=== PATIENT | male | born 1945 | race Caucasian/White ===

== ENCOUNTER → 2019-08-13 15:29 | Outpatient (CLI) | payer MEDICARE, OTHER, SELFPAY ==
--- NOTE | 2019-08-13 | DI.RAD.S_ITS ---
PROCEDURE: XR CHEST 2V INDICATIONS: XR CHEST/ COUGH TECHNIQUE: 2 views of the chest were acquired. COMPARISON: None. FINDINGS: Surgical changes and devices: None. Lungs and pleura: Lungs are clear. No pleural effusions or pneumothorax. Mediastinum: Mediastinal contours are normal. Heart size is normal. Bones and chest wall: No suspicious bony abnormalities. Soft tissues appear unremarkable. IMPRESSION: No acute disease. Dictated by: Enmanuel Sales M.D. on 08/13/2019 at 16:17 Approved by: Enmanuel Sales M.D. on 08/13/2019 at 16:18
== END ==
PROVIDERS: PCP Family Medicine; Visit Provider Family Medicine
DX: R05 Cough (principal)
CPT/HCPCS: 71046

== ENCOUNTER 2019-12-05 07:57 | Emergency (ER) | payer MEDICARE, OTHER, SELFPAY ==
--- NOTE | 2019-12-05 07:58 | ED.GENADULT ---
HPI - General Adult General Chief complaint: Wound/Laceration Stated complaint: tripped over cat lacerated head Time Seen by Provider: 12/05/19 07:57 Source: patient and EMS Mode of arrival: EMS Limitations: no limitations History of Present Illness HPI narrative: 74-year-old male brought in by EMS for a head injury. Patient states that this morning he tripped over his cat falling forward hitting his head on a piece of furniture. There was no loss of consciousness. Was able to ambulate afterwards. Sustained a large cut to his forehead. Call 911. Came in with a bandage over his head. He ambulated into the emergency department. No neck pain. No other injuries reported from the event. Related Data Previous Rx's Medication Instructions Recorded cephalexin [Keflex] 500 mg PO QID 7 Days #28 cap 12/05/19 hydrocodone-acetaminophen [[place]] 1 tab PO Q4-6H PRN #10 tab 12/05/19 Allergies Allergy/AdvReac Type Severity Reaction Status Date / Time No Known Drug Allergies Allergy Verified 12/05/19 08:08 Review of Systems Constitutional Constitutional: Denies fever(s), Denies headache(s) and Denies weakness Eyes Eyes: Denies change in vision ENT Ears, Nose, Mouth, and Throat: Denies vertigo, Denies dizziness, Denies headache(s) and Denies disequilibrium Cardiovascular Cardiovascular: Denies chest pain and Denies dyspnea Respiratory Respiratory: Denies dyspnea Musculoskeletal Musculoskeletal: Denies myalgias and Denies arthralgias Integumentary/Breasts Comments: Laceration to head Neurologic Neurologic: Denies confusion, Denies vertigo, Denies dizziness, Denies headache(s), Denies disequilibrium and Denies weakness Psychiatric Psychiatric: Denies confusion Hematologic/Lymphatic Hematologic/Lymphatic: Denies easy bleeding and Denies easy bruising Comments: not on anticoagulation Patient History Surgical History No pertinent past surgical history (Acute) Social History Smoking Status: Never smoker Exam Initial Vital Signs Initial Vital Signs: Vital Signs Temperature 98.0 F 12/05/19 08:03 Pulse Rate 77 12/05/19 08:03 Respiratory Rate 20 12/05/19 08:03 Blood Pressure 226/109 H 12/05/19 08:03 Pulse Oximetry 99 12/05/19 08:03 Const General: cooperative, comfortable, well developed, well groomed and No acute distress Limitations: mental status not altered HENMT Head: laceration Resp Effort & Inspection: normal respiratory effort Cardio Rate: regular rate Skin Other: large laceration to left side of forehead with bleeding Neuro General: alert, awake and oriented x3 Cognition: normal cognition Speech: speech normal Extrem General: normal to inspection and capillary refill normal Psych Appearance: grossly normal and well kempt Course Orders Ordered: ED Orders 12/05/19 10:45 XR skull <4V Stat Discontinued Medications Hydrocodone Bitart/Acetaminophen ([place] 5/325) 1 tab PO NOW ONE Stop: 12/05/19 11:39 Cefazolin Sodium/Dextrose (Ancef) 2 gm in 100 mls @ 200 mls/hr IV NOW ONE Stop: 12/05/19 10:17 Last Infusion: 12/05/19 11:31 Dose: 0 mls/hr Documented by: Admin: 12/05/19 10:46 Dose: 200 mls/hr Documented by: BOBO Lidocaine/Epinephrine (Xylocaine 1% W/Epi) 1 ml SUBCUT NOW ONE Stop: 12/05/19 07:58 Last Admin: 12/05/19 08:21 Dose: 1 ml Documented by: BOBO Neomycin/Polymyxin/Bacitracin (Neosporin) 1 each TOP NOW ONE Stop: 12/05/19 10:29 Last Admin: 12/05/19 10:31 Dose: 1 each Documented by: BOBO Vital Signs Vital signs: Vital Signs - 8 hr 12/05/19 08:03 12/05/19 08:35 12/05/19 09:22 Temperature 98.0 F Pulse Rate 77 68 68 Respiratory Rate 20 16 18 Blood Pressure 226/109 H Blood Pressure [Left Arm] 184/88 H Pulse Oximetry 99 100 98 12/05/19 11:37 Temperature Pulse Rate 75 Respiratory Rate 16 Blood Pressure Blood Pressure [Left Arm] 178/90 H Pulse Oximetry 97 Medical Decision Making Imaging Data Xray skull: Radiologist's Impression: [address] [address] XRay Report Signed Patient: Rodrigo Eckert WMR#: [id number] : [id number]:[id number] Age/Sex: 74 / MDate of Service: 12/05/19 Loc: ED Accession Number: [id number] Procedure: XR skull <4V Ordering Provider: Ed Vaca D.O. PROCEDURE: XR SKULL<4V INDICATIONS: left temp laceration eval for fracture TECHNIQUE: 4 view(s) of the skull acquired. COMPARISON: None. FINDINGS: Bones: No fractures. No suspicious bony lesions. Visualized sinuses appear clear. Soft tissues: No soft tissue calcifications. No suspicious soft tissue densities. There is a scalp laceration and marked scalp thickening in the left temporoparietal area. IMPRESSION: 1. No displaced skull fracture. 2. There is a scalp laceration and marked scalp thickening in the left temporoparietal area. Dictated by: Nick Carrion M.D. on 12/05/2019 at 11:26 Approved by: Nick Carrion M.D. on 12/05/2019 at 11:29 [facility] Narrative Medical decision making narrative: Patient with a large 20+ cm laceration to his left temporal scalp. It does form a flap. The periosteum underneath appears intact. There is no palpable skull fracture. The flap does extend down to what appears to be just superior to his left ear. There are no vessels that can be identified however it is oozing quite a bit. I did consult Dr. Robledo with General surgery who evaluated the patient in the emergency department. He evaluated the wound. And did all of the repair of the wound in placing of a [place] drain. Patient was given antibiotics here in the ER. He was updated on his tetanus. I do not feel that he needs a CT scan of his head. The x-rays were ordered per recommendation of General surgery to evaluate for fracture. There were no fractures noted on the x-ray. Patient was bandage. He was given care instructions from General surgery. General surgery will follow the patient up on Monday in the clinic. Will send home with antibiotics and pain medication. He was given return precautions and follow-up instructions. He expressed understanding and agreement. Discharge Plan Departure Patient Disposition: Home Clinical Impression: Laceration Instructions: DI for Laceration Repair Activity Restrictions/Additional Instructions: Follow all of the care instructions given to you by General surgery. You were given a prescription for antibiotics. Your 1st dose will be in the middle of this afternoon. Your next dose will be this evening. Use the pain medication as needed. You have a follow-up with Dr. Robledo with General surgery here at [facility] at 0130 on MondayDecember 08. Please check in 15 minutes prior to this. The office phone number for the [place] [facility] is [phone]. Their office is located here in the hospital. Prescriptions: New hydrocodone-acetaminophen [[place]] 5-325 mg tablet 1 tab PO Q4-6H PRN (Reason: pain) Qty: 10 RF: 0 cephalexin [Keflex] 500 mg capsule 500 mg PO QID 7 Days Qty: 28 RF: 0 Referrals: Ed Marcos MD [Primary Care Provider] -
[2019-12-05 08:03] VITALS: BP 226/109; PULSE 77; RESP 20; TEMP 36.7; O2SAT 99; BMI 20.9
[2019-12-05] MEDS: LIDOCAINE 1% W/EPI 1 ML SUBCUT (08:21)
[2019-12-05 08:35] VITALS: BP 184/88; PULSE 68; RESP 16; O2SAT 100
[2019-12-05 09:22] VITALS: PULSE 68; RESP 18; O2SAT 98
[2019-12-05] MEDS: NEOMYCIN/POLYMYXIN/BACITRA UD OINT 1 EACH TOP (10:31)
[2019-12-05] MEDS: LIDOCAINE 2% INJ MDV 20 ML (10:31)
--- NOTE | 2019-12-05 10:32 | PC.NURSE ---
Dr Blunt in ED to suture patient. IV placed and Ancef to be given.
--- NOTE | 2019-12-05 10:45 | DI.RAD.S_ITS ---
PROCEDURE: XR SKULL<4V INDICATIONS: left temp laceration eval for fracture TECHNIQUE: 4 view(s) of the skull acquired. COMPARISON: None. FINDINGS: Bones: No fractures. No suspicious bony lesions. Visualized sinuses appear clear. Soft tissues: No soft tissue calcifications. No suspicious soft tissue densities. There is a scalp laceration and marked scalp thickening in the left temporoparietal area. IMPRESSION: 1. No displaced skull fracture. 2. There is a scalp laceration and marked scalp thickening in the left temporoparietal area. Dictated by: Nick Carrion M.D. on 12/05/2019 at 11:26 Approved by: Nick Carrion M.D. on 12/05/2019 at 11:29
[2019-12-05] MEDS: CEFAZOLIN 2 GM/100 ML FROZ.PIGGY IV (10:46)
--- NOTE | 2019-12-05 11:35 | PC.NURSE ---
pt to and from XR. at side. Dr Vaca advising pt of DC instructions. Advised drain placed in scalp by surgeon and sutured in place. Surgeon advised appt monday at 1300 in his office.
[2019-12-05 11:37] VITALS: BP 178/90; PULSE 75; RESP 16; O2SAT 97
[2019-12-05] MEDS: HYDROCODONE/ACET 5/325 TABLET 1 TAB PO (11:44)
--- NOTE | 2019-12-05 12:06 | CM.DANOTE ---
Discharged patient in stable condition to follow up as directed. RX provided for Keflex and Hydrocodone. Patient with GCS 15 on discharge and no bleeding noted to wound prior to discharge. Home with and daughter. Ambulatory without difficulty.
--- NOTE | 2019-12-06 14:33 | P.CONS_ITS ---
History of Present Illness Consult details Date Patient Seen: 12/05/19 Time Patient Seen: 10:30 Chief complaint: tripped over cat lacerated head Reason for consult: bleeding head laceration Requesting provider: Ed Vaca Narrative: I was asked to come to the emergency room because the patient had fallen and lacerated his scalp but had ongoing bleeding. Patient apparently tripped over a CT and hit a door jam. He did not have loss of consciousness. He said the wound bled profusely at home and in route. He is on no blood thinners Meds Home Medications and Allergies Home Medications Medication Instructions Recorded Confirmed Type cephalexin [Keflex] 500 mg PO QID 7 Days #28 cap 12/05/19 12/06/19 Rx hydrocodone-acetaminophen [[place]] 1 tab PO Q4-6H PRN #10 tab 12/05/19 12/06/19 Rx antiarthritic combination no.2 900 mg PO 12/06/19 12/06/19 History mg tablet cholecalciferol (vitamin D3) 4,000 4,000 unit PO DAILY 12/06/19 12/06/19 History unit capsule dutasteride 0.5 mg capsule 0.5 mg PO DAILY 12/06/19 12/06/19 History magnesium 250 mg tablet 250 mg PO DAILY 12/06/19 12/06/19 History multivitamin,iy-ovyn-mhokmkep 1 tab PO DAILY 12/06/19 12/06/19 History rosuvastatin 10 mg tablet 10 mg PO DAILY 12/06/19 12/06/19 History Allergies Allergy/AdvReac Type Severity Reaction Status Date / Time No Known Drug Allergies Allergy Verified 12/06/19 11:35 Review of Systems Review of Systems Narrative: Denies any chest pain or heart attacks. No breathing issues. No black or bloody bowel movements. No seizures or blackouts. Exam Vital Signs (past 8 hours): Oxygen Delivery Method Room Air Narrative Exam Narrative: Large laceration/near scalping injury to the left of midline. The length of the laceration approximately 12 cm. The portion at the crown of the head is intact but the remainder of the tissue specifically the muscle and skin had been lifted off the underlying galea. The galea peers to be intact. I do not feel any bony defects. There was active oozing coming from the muscle edge. Assessment & Plan Assessment & Plan narrative: Significant head laceration. Will attempt to control the bleeding from the muscle with pressure as there is no distinct bleeding site. Then will close the skin to control any skin edge hemorrhage. Wrap with an Kyree or similar.
--- NOTE | 2019-12-06 14:41 | PM.OP.1 ---
Operative Date/Time/Diagnoses Date of procedure: 12/05/19 Time of procedure: 10:30 Pre-op diagnosis: Head laceration with a partial degloving injury Post-op diagnosis: same Procedure & Clinicians Procedure: Suture repair of a 12 cm long laceration Same procedure as scheduled: Yes Indications: Ongoing hemorrhage from a large scalp laceration Surgeon: Chema Robledo Click Yes if Unassisted: Yes Anesthesia Type: Local (2% lidocaine) Operative Notes Findings: Essentially a degloving injury pulling the skin subcutaneous fat and underlying muscle way from the galea along the left parietal area. No bony defect felt. Closure Type: primary Specimen(s): none sent Prosthetic devices, grafts, tissues, transplants, or devices: None Applied: drain(s) (Monroe drain sutured into place) Blood products transfused: none Procedure in detail: The patient was sitting up in bed. The hair around the laceration was clipped and then prepped with Betadine. Local anesthetic was infiltrated with 2% lidocaine. This was actually done in a field block fashion. I lifted the flap in examined the tissue under it. The muscle was completely torn away from the underlying tissue. The edge was ragged and irregular. There was oozing from its surface but no distinct blood vessel seen. I VAC weighted all the clot from the area. I then applied direct pressure for approximately 15 minutes and the oozing was controlled. I then sutured the skin closed with vertical mattress deep bites of 3 0 nylon. I made this a rather loose closure so any blood under the flap could escape. I placed a Monroe drain posteriorly and sutured it into place to evacuate any blood that might occur once pressure was relieved. Sutures were placed to bring all the bleeding from the skin edge under control. Antibiotic ointment was applied and a dressing was applied. This consisted of dry gauze and a Kerlix covered by Coban. I loosened the area around the neck as it was initially was too tight. Patient was given verbal instructions and these were communicated to the ER doctor so that would they would also be put in writing. He could remove the dressing in 2 days and shower. He should keep antibiotic ointment on it. He should not pull on the drain. Follow-up this Monday. Shanda man says instructed. Pain medication. Complications: none Post-operative Condition: stable Disposition: other (Home if x-ray is of the head show no evidence of fracture)
== END 2019-12-05 12:09 | disposition home or self-care (01) ==
PROVIDERS: Emergency Provider Emergency Medicine; PCP Family Medicine
DX: S01.81XA Laceration without foreign body of other part of head, initial encounter (principal); W01.190A Fall on same level from slipping, tripping and stumbling with subsequent striking against furniture, initial encounter
CPT/HCPCS: 13132; 13133; 70250; 96365; 99284; J0690

== ENCOUNTER → 2020-10-14 08:59 | Outpatient (CLI) | payer MEDICARE, OTHER, SELFPAY ==
[2020-10-14] MEDS: COVID-19 VACC #1, MRNA(MOD) 100 MCG/0.5 ML VIAL IM (09:03)
== END ==
PROVIDERS: Visit Provider Internal Medicine
DX: Z23 Encounter for immunization (principal)
CPT/HCPCS: 0011A; 91301

== ENCOUNTER → 2020-11-11 07:52 | Outpatient (CLI) | payer MEDICARE, OTHER, SELFPAY ==
[2020-11-11] MEDS: COVID-19 VACC #2, MRNA(MOD) 100 MCG/0.5 ML VIAL IM (08:01)
== END ==
PROVIDERS: Visit Provider Internal Medicine
DX: Z23 Encounter for immunization (principal)
CPT/HCPCS: 0012A; 91301

== ENCOUNTER → 2022-01-06 09:35 | Outpatient (CLI) | payer MEDICARE, OTHER, SELFPAY ==
[2022-01-06 11:21] LABS: COVID-19 CEPHEID PCR (VTM/NP) Negative (Negative)
== END ==
PROVIDERS: Visit Provider Family Medicine Sleep Medicine
DX: Z20.822 Contact with and (suspected) exposure to COVID-19 (principal)
CPT/HCPCS: C9803; U0003; U0005

== ENCOUNTER → 2023-05-06 14:10 | Outpatient (CLI) | payer MEDICARE, OTHER, SELFPAY ==
--- NOTE | 2023-05-06 | DI.MRI.S_ITS ---
PROCEDURE: MR HEAD/BRAIN WO/W CON INDICATIONS: 78-year-old male with positional dizziness TECHNIQUE: Noncontrast axial T1 spin echo, axial T2 fast spin echo, sagittal and axial FLAIR, coronal T2 fast spin echo, axial gradient echo, axial diffusion and ADC through the brain. After the administration of contrast, axial and coronal and sagittal 3D VIBE or T1 spin echo with fat saturation through the brain. COMPARISON: None. FINDINGS: Image quality: Excellent. CSF Spaces: Basal cisterns are patent. No extra-axial fluid collections. Ventricles are normal in size and shape. Brain: No intracranial masses or hemorrhage. Dillard/white matter interface is normal. Brainstem appears normal. Diffusion-weighted sequence is unremarkable without evidence of acute infarct. Normal intravascular flow voids are present. Moderate atrophy and chronic ischemic change. No abnormal enhancement Skull and face: Calvarial marrow is normal in signal. Orbits appear normal. Sinuses: Sinuses and mastoids appear clear. IMPRESSION: Moderate atrophy and chronic ischemic change without acute infarct, hemorrhage or mass lesion Approved by: Ezequiel Maya M.D. on 05/07/2023 at 9:22
== END ==
PROVIDERS: Family Provider Family Medicine; PCP Family Medicine; Referring Provider Family Medicine; Visit Provider Family Medicine
DX: G31.9 Degenerative disease of nervous system, unspecified (principal); R42 Dizziness and giddiness
CPT/HCPCS: 70553; A9579

== ENCOUNTER 2023-06-07 14:00 | Outpatient (RCR) | payer MEDICARE, OTHER, SELFPAY ==
--- NOTE | 2023-05-25 16:49 | PT.OIE ---
Current Diagnoses Benign paroxysmal vertigo, left ear (05/25/23) Dizziness and giddiness (05/25/23) Past Medical History (Last Reviewed 12/10/19 @ 12:57 by Chema Robledo MD) Elevated lipids Past Surgical History (Last Reviewed 12/10/19 @ 12:57 by Chema Robledo MD) Hx of hernia repair Hx of repair of rotator cuff No pertinent past surgical history Visit Care Team Role Provider Type Tavo Hayes MD Attending Provider Physician Family Provider Primary Care Provider Referring Provider Specialty: [facility] Address: [address] [place] [address], [facility] Email: [email or web address] Physical Therapy Initial Evaluation PT-OP-A Visit Information Start: 05/25/23 16:39 Freq: Status: Active Protocol: Document 05/25/23 15:45 DCW (Rec: 05/25/23 16:49 DCW [id number]) Out-Patient Physical Therapy Visit Information Visit Information Visit Type Initial Evaluation Visit Start Time 15:45 Visit Stop Time 16:30 Total Visit Minutes 45 Visit Number 1 Number of SUPERVISOR TREATING [employer] PUMPING Visits 0 Evaluation Information Evaluation Date 05/25/23 PT-OP-B Current Condition Start: 05/25/23 16:39 Freq: Status: Active Protocol: Document 05/25/23 15:45 DCW (Rec: 05/25/23 16:49 DCW [id number]) Current Condition History of Current Condition Onset Date 2-3 week history Current Complaints Position-dependent vertigo History of Current Condition Pt is a 78 year old male complaining of a 2-3 week history of motion-induced vertigo. Pt reports episodes last ~1 minute. Symptoms are provoked by lying down or looking up. Pt denies recent hearing changes, tinnitus, diplopia, dysarthria, discoordination, or decreased mentation/consciousness. Pt reports symptoms are not waxing/waning in nature. Pt denies hx of diabetes, arrhythmia, head trauma, seizure, migraines, back/neck problems, CVA, anxiety/panic disorders, depression, or excessive smoking or drinking. Does have a history of both HTN and high cholesterol, both of which are well controlled with medication. Treatment Goals Patient/Caregiver Goals Eliminate vertigo PT-OP-C Subjective Start: 05/25/23 16:39 Freq: Status: Active Protocol: Document 05/25/23 15:45 DCW (Rec: 05/25/23 16:49 DCW [id number]) OP-PT Subjective Patient Comments Patient Comments Pt notes he has read a lot on the internet, believes it is BPPV, and has attempted a self -Melody, but without success. Patient Questionnaires Dizziness Handicap Inventory DHI Score 16% PT-OP-O Vestibular Start: 05/25/23 16:39 Freq: Status: Active Protocol: Document 05/25/23 15:45 DCW (Rec: 05/25/23 16:49 DCW [id number]) Vestibular Assessment Auditory Tests Haynes Test Within normal limits Rinne Test Negative Air Conduction Results Equal Visual Testing Smooth Pursuits Horizontal WNL Smooth Pursuits Vertical WNL Saccades Horizontal WNL Saccades Vertical WNL Heave Test Positive Bilateral Thrust Head Positive Bilateral Spontaneous Nystagmus Negative Positional Testing [place]-Hallpike Positive Left,Negative Right, Upbeating,< 60 Seconds Rolling Test Negative Left,Negative Right PT-OP-Q Treatments Start: 05/25/23 16:39 Freq: Status: Active Protocol: Document 05/25/23 15:45 DCW (Rec: 05/25/23 16:49 DCW [id number]) Canalithic Repositioning BPPV Treatment Melody Affected Canal(s) Left Posterior Reps x2 Comments Modified Melody PT-OP-T Assessment and Plan Start: 05/25/23 16:39 Freq: Status: Active Protocol: Document 05/25/23 15:45 DCW (Rec: 05/25/23 16:49 DC [id number]) Physical Therapy Assessment Rehab Potential Rehabilitation Potential Excellent Evaluation Complexity Number of Personal Factors/Comorbidities 0 Number of Body Systems Impaired 1-2 Clinical Presentation at Evaluation Unstable Impairments Impairments Balance,Functional Activities, Functional Mobility,Transfers, Vestibular Goals Two Impairment Positive Left Kateryna-Hallpike Alf Goal (LTG) Positional testing negative bilaterally LTG Duration 07/06/23 One Impairment Pt reports vertigenous symptoms with migdalia mobility Short Term Goal (STG) Pt to report no vertigo with bed mobility for a full week STG Duration 06/08/23 Assessment Summary Assessment Initial left [place]-Hallpike negative, however pt came laid back very slowly. Right Kateryna- Hallpike also negative. Upon left roll test, pt showed up- beating torsional nystagmus for 15 seconds with complaints of vertigo, and then right roll test was negative. Second left [place]-Hallpike was then performed with increased speed and was mildly positive. 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 Pt was treated with a left-sided modified Melody maneuver. Pt complained of symptoms in the first and third position, which is normally indicative of a successful treatment. Further positional testing was negative. Pt was educated on BPPV, expectations for treatment, possible recurrence (BPPV has a ~50% recurrence rate in the five years following treatment), and post -Melody restrictions. Pt to return in ~1 week for a follow -up appointment, and intermittently afterward as indicated for treatment of BPPV. Physical Therapy Plan Frequency and Duration Frequency of Treatment 1-2x/week Plan of Care Start Date 05/25/23 Plan of Care End Date 07/06/23 Therapeutic Interventions Therapeutic Interventions Balance Training,Canalithic Repositioning,Manual Therapy, Neuromuscular Re-education, Therapeutic Exercises, Vestibular Rehabilitation Next Visit Focus/Plan Next Note Type Treatment Note Next Visit Plan Positional testing, CRM as indicated
--- NOTE | 2023-05-25 16:50 | PT.OPPOC ---
Physical, Occupational & Speech Therapy At [facility] Current Diagnoses Benign paroxysmal vertigo, left ear (05/25/23) Dizziness and giddiness (05/25/23) Visit Care Team Role Provider Type Tavo Hayes MD Attending Provider Physician Family Provider Primary Care Provider Referring Provider Specialty: [facility] Address: [address] [place] [address], [facility] Email: [email or web address] Plan Of Care PT-OP-T Assessment and Plan Start: 05/25/23 16:39 Freq: Status: Active Protocol: Document 05/25/23 15:45 DCW (Rec: 05/25/23 16:49 DCW [id number]) Physical Therapy Assessment Rehab Potential Rehabilitation Potential Excellent Evaluation Complexity Number of Personal Factors/Comorbidities 0 Number of Body Systems Impaired 1-2 Clinical Presentation at Evaluation Unstable Impairments Impairments Balance,Functional Activities, Functional Mobility,Transfers, Vestibular Goals Two Impairment Positive Left [place]-Hallpike Detention Goal (LTG) Positional testing negative bilaterally LTG Duration 07/06/23 One Impairment Pt reports vertigenous symptoms with migdalia mobility Short Term Goal (STG) Pt to report no vertigo with bed mobility for a full week STG Duration 06/08/23 Assessment Summary Assessment Initial left [place]-Hallpike negative, however pt came laid back very slowly. Right Kateryna- Hallpike also negative. Upon left roll test, pt showed up- beating torsional nystagmus for 15 seconds with complaints of vertigo, and then right roll test was negative. Second left Kateryna-Hallpike was then performed with increased speed and was mildly positive. 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 Pt was treated with a left-sided modified Melody maneuver. Pt complained of symptoms in the first and third position, which is normally indicative of a successful treatment. Further positional testing was negative. Pt was educated on BPPV, expectations for treatment, possible recurrence (BPPV has a ~50% recurrence rate in the five years following treatment), and post -Melody restrictions. Pt to return in ~1 week for a follow -up appointment, and intermittently afterward as indicated for treatment of BPPV. Physical Therapy Plan Frequency and Duration Frequency of Treatment 1-2x/week Plan of Care Start Date 05/25/23 Plan of Care End Date 07/06/23 Therapeutic Interventions Therapeutic Interventions Balance Training,Canalithic Repositioning,Manual Therapy, Neuromuscular Re-education, Therapeutic Exercises, Vestibular Rehabilitation Next Visit Focus/Plan Next Note Type Treatment Note Next Visit Plan Positional testing, CRM as indicated Plan of Care Dates Plan of Care Start Date 05/25/23 Plan of Care End Date 07/06/23 Electronically Signed by: Efrain Bhandari, PT 05/25/23 [id number] If you are in agreement with this Plan of Care, please return a signed and dated copy. I have reviewed this Plan of Care and certify that the skilled therapy services above are required to meet the patient?s needs. Physician Signature Date Printed Name and Credentials Clinical Instructor Signature Printed Name and Credentials
--- NOTE | 2023-06-01 11:35 | PT.OTN ---
Current Diagnoses Benign paroxysmal vertigo, left ear (06/01/23) Dizziness and giddiness (06/01/23) Physical Therapy Treatment Note PT-OP-A Visit Information Start: 05/25/23 16:39 Freq: Status: Active Protocol: Document 06/01/23 11:00 DCW (Rec: 06/01/23 11:35 DCW [id number]) Out-Patient Physical Therapy Visit Information Visit Information Visit Type Treatment Note Visit Start Time 11:00 Visit Stop Time 11:30 Total Visit Minutes 30 Visit Number 2 Number of MEDICAL SUPPORT SPECIALIST Visits 0 Evaluation Information Evaluation Date 05/25/23 PT-OP-B Current Condition Start: 05/25/23 16:39 Freq: Status: Active Protocol: Document 05/25/23 15:45 DCW (Rec: 05/25/23 16:49 DCW [id number]) Current Condition History of Current Condition Onset Date 2-3 week history Current Complaints Position-dependent vertigo History of Current Condition Pt is a 78 year old male complaining of a 2-3 week history of motion-induced vertigo. Pt reports episodes last ~1 minute. Symptoms are provoked by lying down or looking up. Pt denies recent hearing changes, tinnitus, diplopia, dysarthria, discoordination, or decreased mentation/consciousness. Pt reports symptoms are not waxing/waning in nature. Pt denies hx of diabetes, arrhythmia, head trauma, seizure, migraines, back/neck problems, CVA, anxiety/panic disorders, depression, or excessive smoking or drinking. Does have a history of both HTN and high cholesterol, both of which are well controlled with medication. Treatment Goals Patient/Caregiver Goals Eliminate vertigo PT-OP-C Subjective Start: 05/25/23 16:39 Freq: Status: Active Protocol: Document 06/01/23 11:00 DCW (Rec: 06/01/23 11:35 DCW [id number]) OP-PT Subjective Patient Comments Patient Comments Pt reports some mild continued symptoms PT-OP-O Vestibular Start: 05/25/23 16:39 Freq: Status: Active Protocol: Document 06/01/23 11:00 DCW (Rec: 06/01/23 11:35 DCW [id number]) Vestibular Assessment Positional Testing Kateryna-Hallpike Negative Left,Negative Right Rolling Test Positive Left,Positive Right, Geotropic PT-OP-Q Treatments Start: 05/25/23 16:39 Freq: Status: Active Protocol: Document 06/01/23 11:00 DCW (Rec: 06/01/23 11:35 DCW [id number]) Canalithic Repositioning BPPV Treatment Gufoni Affected Canal(s) Left Horizontal Reps x1 PT-OP-T Assessment and Plan Start: 05/25/23 16:39 Freq: Status: Active Protocol: Document 06/01/23 11:00 DCW (Rec: 06/01/23 11:35 DCW [id number]) Physical Therapy Assessment Impairments Impairments Balance,Functional Activities, Functional Mobility,Transfers, Vestibular Goals Two Impairment Positive Left [place]-Hallpike Skilled Nursing Goal (LTG) Positional testing negative bilaterally LTG Duration 07/06/23 One Impairment Pt reports vertiginous symptoms with bed mobility Short Term Goal (STG) Pt to report no vertigo with bed mobility for a full week STG Duration 06/08/23 Assessment Summary Assessment During bilateral roll testing, pt complained of mild (L>R) vertigo and demonstrated geotropic nystagmus lasting approximately 5 seconds, consistent with diagnosis of left-sided horizontal canal BPPV, canalithiasis-type. Pt was treated with a left-sided Gufoni Maneuver, noted feeling much better upon sitting. Pt to return in ~1 week for a follow-up appointment, and intermittently afterward as indicated for treatment of BPPV. Physical Therapy Plan Frequency and Duration Frequency of Treatment 1-2x/week Plan of Care Start Date 05/25/23 Plan of Care End Date 07/06/23 Therapeutic Interventions Therapeutic Interventions Balance Training,Canalithic Repositioning,Manual Therapy, Neuromuscular Re-education, Therapeutic Exercises, Vestibular Rehabilitation Next Visit Focus/Plan Next Note Type Treatment Note Next Visit Plan Positional testing, CRM as indicated
--- NOTE | 2023-06-07 14:32 | PT.OTN ---
Current Diagnoses Benign paroxysmal vertigo, left ear (06/07/23) Dizziness and giddiness (06/07/23) Physical Therapy Treatment Note PT-OP-A Visit Information Start: 05/25/23 16:39 Freq: Status: Active Protocol: Document 06/07/23 14:00 DCW (Rec: 06/07/23 14:32 DCW [id number]) Out-Patient Physical Therapy Visit Information Visit Information Visit Type Treatment Note Visit Start Time 14:00 Visit Stop Time 14:25 Total Visit Minutes 25 Visit Number 3 Number of APPOINTMENT SPECIALIST Visits 0 Evaluation Information Evaluation Date 05/25/23 PT-OP-B Current Condition Start: 05/25/23 16:39 Freq: Status: Active Protocol: Document 05/25/23 15:45 DCW (Rec: 05/25/23 16:49 DCW [id number]) Current Condition History of Current Condition Onset Date 2-3 week history Current Complaints Position-dependent vertigo History of Current Condition Pt is a 78 year old male complaining of a 2-3 week history of motion-induced vertigo. Pt reports episodes last ~1 minute. Symptoms are provoked by lying down or looking up. Pt denies recent hearing changes, tinnitus, diplopia, dysarthria, discoordination, or decreased mentation/consciousness. Pt reports symptoms are not waxing/waning in nature. Pt denies hx of diabetes, arrhythmia, head trauma, seizure, migraines, back/neck problems, CVA, anxiety/panic disorders, depression, or excessive smoking or drinking. Does have a history of both HTN and high cholesterol, both of which are well controlled with medication. Treatment Goals Patient/Caregiver Goals Eliminate vertigo PT-OP-C Subjective Start: 05/25/23 16:39 Freq: Status: Active Protocol: Document 06/07/23 14:00 DCW (Rec: 06/07/23 14:32 DCW [id number]) OP-PT Subjective Patient Comments Patient Comments Most of my vertigo and dizziness is laying down. I'm not getting much of anything standing anymore. PT-OP-O Vestibular Start: 05/25/23 16:39 Freq: Status: Active Protocol: Document 06/07/23 14:00 DCW (Rec: 06/07/23 14:32 DCW [id number]) Vestibular Assessment Positional Testing [place]-Hallpike Negative Left,Negative Right Rolling Test Negative Left,Negative Right PT-OP-Q Treatments Start: 05/25/23 16:39 Freq: Status: Active Protocol: Document 06/07/23 14:00 DCW (Rec: 06/07/23 14:32 DCW [id number]) Manual Therapy Treatment Other Other Manual Treatments Positional testing Self-Care/Home Management Treatment Education Other Education BPPV recurrence rate, potential causes PT-OP-T Assessment and Plan Start: 05/25/23 16:39 Freq: Status: Active Protocol: Document 06/07/23 14:00 DCW (Rec: 06/07/23 14:32 DCW [id number]) Physical Therapy Assessment Impairments Impairments Balance,Functional Activities, Functional Mobility,Transfers, Vestibular Goals Two Impairment Positive Left [place]-Hallpike Warehouse Stock Clerk Goal (LTG) Positional testing negative bilaterally LTG Duration 07/06/23 One Impairment Pt reports vertiginous symptoms with bed mobility Short Term Goal (STG) Pt to report no vertigo with bed mobility for a full week STG Duration 06/08/23 Assessment Summary Assessment Positional testing entirely negative today, no objective signs or symptoms of BPPV. Pt subjective reports include continuing symptoms, typically with bed mobility in morning. With negative testing, difficult to determine involved ear or canal. Pt agreeable to return next week if subjective symptoms persist for retesting and potential CRM. Physical Therapy Plan Frequency and Duration Frequency of Treatment 1-2x/week Plan of Care Start Date 05/25/23 Plan of Care End Date 07/06/23 Therapeutic Interventions Therapeutic Interventions Balance Training,Canalithic Repositioning,Manual Therapy, Neuromuscular Re-education, Therapeutic Exercises, Vestibular Rehabilitation Next Visit Focus/Plan Next Note Type Treatment Note Next Visit Plan Positional testing, CRM as indicated
--- NOTE | 2023-06-13 17:51 | PT.OPDS ---
Current Diagnoses Benign paroxysmal vertigo, left ear (06/07/23) Dizziness and giddiness (06/07/23) Visit Care Team Role Provider Type Tavo Hayes MD Attending Provider Physician Family Provider Primary Care Provider Referring Provider Specialty: [facility] Address: [address] [place] [address], [facility] Email: [email or web address] Visit Number Visit Number 3 Discharge Summary PT-OP-B Current Condition Start: 05/25/23 16:39 Freq: Status: Active Protocol: Document 05/25/23 15:45 DCW (Rec: 05/25/23 16:49 DCW [id number]) Current Condition History of Current Condition Onset Date 2-3 week history Current Complaints Position-dependent vertigo History of Current Condition Pt is a 78 year old male complaining of a 2-3 week history of motion-induced vertigo. Pt reports episodes last ~1 minute. Symptoms are provoked by lying down or looking up. Pt denies recent hearing changes, tinnitus, diplopia, dysarthria, discoordination, or decreased mentation/consciousness. Pt reports symptoms are not waxing/waning in nature. Pt denies hx of diabetes, arrhythmia, head trauma, seizure, migraines, back/neck problems, CVA, anxiety/panic disorders, depression, or excessive smoking or drinking. Does have a history of both HTN and high cholesterol, both of which are well controlled with medication. Treatment Goals Patient/Caregiver Goals Eliminate vertigo PT-OP-C Subjective Start: 05/25/23 16:39 Freq: Status: Active Protocol: Document 06/07/23 14:00 DCW (Rec: 06/07/23 14:32 DCW [id number]) OP-PT Subjective Patient Comments Patient Comments Most of my vertigo and dizziness is laying down. I'm not getting much of anything standing anymore. PT-OP-O Vestibular Start: 05/25/23 16:39 Freq: Status: Active Protocol: Document 06/07/23 14:00 DCW (Rec: 06/07/23 14:32 DCW [id number]) Vestibular Assessment Positional Testing Kateryna-Hallpike Negative Left,Negative Right Rolling Test Negative Left,Negative Right PT-OP-T Assessment and Plan Start: 05/25/23 16:39 Freq: Status: Active Protocol: Document 06/13/23 17:50 DCW (Rec: 06/13/23 17:51 DCW [id number]) Physical Therapy Assessment Assessment Summary Assessment As agreed, pt canceled last appointment since symptoms no longer present. Pt currently no longer exhibiting symptoms consistent with BPPV, will be discharged from skilled PT at this time. Physical Therapy Plan Frequency and Duration Frequency of Treatment 1-2x/week Plan of Care Start Date 05/25/23 Plan of Care End Date 07/06/23 Therapeutic Interventions Therapeutic Interventions Balance Training,Canalithic Repositioning,Manual Therapy, Neuromuscular Re-education, Therapeutic Exercises, Vestibular Rehabilitation Discharge Physical Therapy Discharge Reasons Goals Met Next Visit Focus/Plan Next Note Type Discharge Summary
== END 2023-06-16 08:44 | disposition home or self-care (01) ==
LOC: PHYS 14:00
PROVIDERS: Family Provider Family Medicine; PCP Family Medicine; Referring Provider Family Medicine; Visit Provider Family Medicine
DX: H81.12 Benign paroxysmal vertigo, left ear (principal)
CPT/HCPCS: 95992; 97140; 97161; 97535

== ENCOUNTER 2023-12-07 16:00 | Outpatient (RCR) | payer MEDICARE, OTHER, SELFPAY ==
--- NOTE | 2023-11-06 18:14 | PT.OIE ---
Current Diagnoses Other disorders of vestibular function, right ear (11/06/23) Unspecified disorder of vestibular function, unspecified ear (11/06/23) Past Medical History (Last Reviewed 12/10/19 @ 12:57 by Chema Robledo MD) Elevated lipids Past Surgical History (Last Reviewed 12/10/19 @ 12:57 by Chema Robledo MD) Hx of hernia repair Hx of repair of rotator cuff No pertinent past surgical history Visit Care Team Role Provider Type Tavo Hayes MD Family Provider Physician Primary Care Provider Specialty: [facility] Address: [address] [place] [address], [facility] Email: [email or web address] Jalen Lewis MD Attending Provider Physician Referring Provider Specialty: Ear, Nose, Throat Address: [address] [place] [address], [facility] Email: [email or web address] Physical Therapy Initial Evaluation PT-OP-A Visit Information Start: 11/06/23 17:58 Freq: Status: Active Protocol: Document 11/06/23 15:15 DCW (Rec: 11/06/23 18:01 DCW [id number]) Out-Patient Physical Therapy Visit Information Visit Information Visit Type Initial Evaluation Visit Start Time 15:15 Visit Stop Time 16:00 Visit Number 1 Number of CLAIMS ADJUSTER SUPERVISOR Visits 0 Evaluation Information Evaluation Date 11/06/23 PT-OP-B Current Condition Start: 11/06/23 17:58 Freq: Status: Active Protocol: Document 11/06/23 15:15 DCW (Rec: 11/06/23 18:08 DCW [id number]) Current Condition History of Current Condition Onset Date April, Current Complaints Lightheadedness, Motion sensitivity History of Current Condition Pt is an 78 year old male with a six month history of spontaneous onset of constant dizziness, reported as sensitivity to motion and lightheadedness, worsened with quick motions, or when up walking around. Pt was seen in May of last year with vague complaints which sounded much more like BPPV, and was treated at that time with repeated Melody maneuvers, with mild success. After discharge , symptoms were still bothering him enough that he was seen by an ENT. 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 Pt returns to vestibular therapy with hopes that dedicated vestibular rehabilitation will help to decrease severity of symptoms and help adjust to return to normal activity. Additionally, pt recently underwent cataract surgery, now has 20/ 20 vision, uses readers for close up. Prior Treatments and Tests VNG: Cervical VEMP abnormal - 40% right asymmetry. Criteria for asymmetry is greater than 36%. PT-OP-C Subjective Start: 11/06/23 17:58 Freq: Status: Active Protocol: Document 11/06/23 15:15 DCW (Rec: 11/06/23 18:08 DCW [id number]) OP-PT Subjective Patient Comments Patient Comments It's kind of always there. Patient Questionnaires Dizziness Handicap Inventory DHI Score 8% DHI Functional Impairment 1 to 19% Impaired (Score 1-19) PT-OP-O Vestibular Start: 11/06/23 17:58 Freq: Status: Active Protocol: Document 11/06/23 15:15 DCW (Rec: 11/06/23 18:01 DCW [id number]) Vestibular Assessment Visual Testing Convergence Test Impaired DVA (Line Degradation) 6 Vestibular Function Tests CTSIB Position 1 Slight Sway CTSIB Position 2 Mild Sway CTSIB Position 3 Slight Sway CTSIB Position 4 Moderate Sway CTSIB Position 5 Falls Risk CTSIB Position 6 Falls Risk PT-OP-Q Treatments Start: 11/06/23 17:58 Freq: Status: Active Protocol: Document 11/06/23 15:15 DCW (Rec: 11/06/23 18:01 DCW [id number]) Neuro Re-Education Treatment Vestibular Rehabilitation Pencil Push-ups Details Pencil Push-ups Speed as tolerated PT-OP-T Assessment and Plan Start: 11/06/23 17:58 Freq: Status: Active Protocol: Document 11/06/23 15:15 DCW (Rec: 11/06/23 18:13 DCW [id number]) Physical Therapy Assessment Rehab Potential Rehabilitation Potential Good Evaluation Complexity Number of Personal Factors/Comorbidities 3 or More Number of Body Systems Impaired 4 or More Impairments Impairments Activity Tolerance,Balance, Functional Activities, Vestibular,Visual Motor Goals Two Impairment Pt exhibits fall reaction in CTSIB positions V and Shelter Goal (LTG) PT to display moderate sway or better during CTSIB positions V and in order to show improved compensation of vestibular dysfunction LTG Duration 01/05/24 One Impairment Pt does not have an appropriate home exercise program Short Term Goal (STG) Pt to be independent and compliant with an appropriate HEP STG Duration 12/05/23 Assessment Summary Assessment Pt presents with signs and symptoms consistent with results of recent VNG, demonstrating signs of unilateral vestibular hypofunction. Six line degradation during DVA testing highly suggestive of uncompensated loss. Additionally struggles with convergence, noting diplopia that was unable to be corrected at a distance of 28 cm. Fall reaction in positions V and of the CTSIB. Pt should benefit from skilled vestibular therapy focusing on vestibular adaptation/ habituation exercises, X1/X2, VOR retraining, and balance challenges. Physical Therapy Plan Frequency and Duration Frequency of Treatment 2x/Week Plan of Care Start Date 11/06/23 Plan of Care End Date 01/05/24 Therapeutic Interventions Therapeutic Interventions Balance Training,Canalithic Repositioning,Coordination Training,Home Exercise Program ,Manual Therapy,Neuromuscular Re-education,Patient/Caregiver Education,Self-Care/Home Management,Therapeutic Activities,Therapeutic Exercises,Vestibular Rehabilitation Next Visit Focus/Plan Next Note Type Treatment Note Next Visit Plan VOR, X1/X2, Habituation/ adaptation exercises
--- NOTE | 2023-11-06 18:14 | PT.OPPOC ---
Physical, Occupational & Speech Therapy At [facility] Current Diagnoses Other disorders of vestibular function, right ear (11/06/23) Unspecified disorder of vestibular function, unspecified ear (11/06/23) Visit Care Team Role Provider Type Tavo Hayes MD Family Provider Physician Primary Care Provider Specialty: Family Practice Address: [address] [place] [address], [id number] Email: [email or web address] Jalne Lewis MD Attending Provider Physician Referring Provider Specialty: Ear, Nose, Throat Address: [address] [place] [address], [id number] Email: [email or web address] Plan Of Care PT-OP-T Assessment and Plan Start: 11/06/23 17:58 Freq: Status: Active Protocol: Document 11/06/23 15:15 DCW (Rec: 11/06/23 18:13 DCW [id number]) Physical Therapy Assessment Rehab Potential Rehabilitation Potential Good Evaluation Complexity Number of Personal Factors/Comorbidities 3 or More Number of Body Systems Impaired 4 or More Impairments Impairments Activity Tolerance,Balance, Functional Activities, Vestibular,Visual Motor Goals Two Impairment Pt exhibits fall reaction in CTSIB positions V and Steam Box Tender Goal (LTG) PT to display moderate sway or better during CTSIB positions V and in order to show improved compensation of vestibular dysfunction LTG Duration 01/05/24 One Impairment Pt does not have an appropriate home exercise program Short Term Goal (STG) Pt to be independent and compliant with an appropriate HEP STG Duration 12/05/23 Assessment Summary Assessment Pt presents with signs and symptoms consistent with results of recent VNG, demonstrating signs of unilateral vestibular hypofunction. Six line degradation during DVA testing highly suggestive of uncompensated loss. Additionally struggles with convergence, noting diplopia that was unable to be corrected at a distance of 28 cm. Fall reaction in positions V and of the CTSIB. Pt should benefit from skilled vestibular therapy focusing on vestibular adaptation/ habituation exercises, X1/X2, VOR retraining, and balance challenges. Physical Therapy Plan Frequency and Duration Frequency of Treatment 2x/Week Plan of Care Start Date 11/06/23 Plan of Care End Date 01/05/24 Therapeutic Interventions Therapeutic Interventions Balance Training,Canalithic Repositioning,Coordination Training,Home Exercise Program ,Manual Therapy,Neuromuscular Re-education,Patient/Caregiver Education,Self-Care/Home Management,Therapeutic Activities,Therapeutic Exercises,Vestibular Rehabilitation Next Visit Focus/Plan Next Note Type Treatment Note Next Visit Plan VOR, X1/X2, Habituation/ adaptation exercises Plan of Care Dates Plan of Care Start Date 11/06/23 Plan of Care End Date 01/05/24 Electronically Signed by: Efrain Bhandari, PT 11/06/23 2010 If you are in agreement with this Plan of Care, please return a signed and dated copy. I have reviewed this Plan of Care and certify that the skilled therapy services above are required to meet the patient?s needs. Physician Signature Date Printed Name and Credentials Clinical Instructor Signature Printed Name and Credentials
--- NOTE | 2023-11-08 16:45 | PT.OTN ---
Current Diagnoses Other disorders of vestibular function, right ear (11/08/23) Unspecified disorder of vestibular function, unspecified ear (11/08/23) Physical Therapy Treatment Note PT-OP-A Visit Information Start: 11/06/23 17:58 Freq: Status: Active Protocol: Document 11/08/23 16:00 DCW (Rec: 11/08/23 16:44 DCW [id number]) Out-Patient Physical Therapy Visit Information Visit Information Visit Type Treatment Note Visit Start Time 15:15 Visit Stop Time 16:00 Visit Number 2 Number of BYPRODUCTS PUMP OPERATOR Visits 0 Evaluation Information Evaluation Date 11/06/23 PT-OP-B Current Condition Start: 11/06/23 17:58 Freq: Status: Active Protocol: Document 11/06/23 15:15 DCW (Rec: 11/06/23 18:08 DCW [id number]) Current Condition History of Current Condition Onset Date April, Current Complaints Lightheadedness, Motion sensitivity History of Current Condition Pt is an 78 year old male with a six month history of spontaneous onset of constant dizziness, reported as sensitivity to motion and lightheadedness, worsened with quick motions, or when up walking around. Pt was seen in May of last year with vague complaints which sounded much more like BPPV, and was treated at that time with repeated Melody maneuvers, with mild success. After discharge , symptoms were still bothering him enough that he was seen by an ENT. 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 Pt returns to vestibular therapy with hopes that dedicated vestibular rehabilitation will help to decrease severity of symptoms and help adjust to return to normal activity. Additionally, pt recently underwent cataract surgery, now has 20/ 20 vision, uses readers for close up. Prior Treatments and Tests VNG: Cervical VEMP abnormal - 40% right asymmetry. Criteria for asymmetry is greater than 36%. PT-OP-C Subjective Start: 11/06/23 17:58 Freq: Status: Active Protocol: Document 11/08/23 16:00 DCW (Rec: 11/08/23 16:45 DCW [id number]) OP-PT Subjective Patient Comments Patient Comments Pt notes feeling fairly good overall, had easier time with pencil push-ups at home after putting on his reading glasses . PT-OP-O Vestibular Start: 11/06/23 17:58 Freq: Status: Active Protocol: Document 11/06/23 15:15 DCW (Rec: 11/06/23 18:01 DCW [id number]) Vestibular Assessment Visual Testing Convergence Test Impaired DVA (Line Degradation) 6 Vestibular Function Tests CTSIB Position 1 Slight Sway CTSIB Position 2 Mild Sway CTSIB Position 3 Slight Sway CTSIB Position 4 Moderate Sway CTSIB Position 5 Falls Risk CTSIB Position 6 Falls Risk PT-OP-Q Treatments Start: 11/06/23 17:58 Freq: Status: Active Protocol: Document 11/08/23 16:00 DCW (Rec: 11/08/23 16:44 DCW [id number]) Gym Equipment Shuttle Balance Red Details Red Comments WBOS Neuro Re-Education Treatment Balance Activities Foam Details NBOS foam stance Surface Large blue Comments Head turns, eyes closed Dynamic Gait Details Head turns with Metronome Comments 100->120 bpm Vestibular Rehabilitation Corrective Saccades Details Eyes, then head Distance From Target Arm's length Speed As tolerated Position Seated X2 Viewing Details Head and target moving in opposite directions Distance From Target Arm's length Speed As tolerated Position Seated X1 Viewing Details Static target, head movement Distance From Target Arm's length Speed As tolerated Position Seated VOR Retraining Details Head and target moving together Distance From Target Arm's length Speed As tolerated Position Seated PT-OP-T Assessment and Plan Start: 11/06/23 17:58 Freq: Status: Active Protocol: Document 11/08/23 16:00 DCW (Rec: 11/08/23 16:44 DCW [id number]) Physical Therapy Assessment Impairments Impairments Activity Tolerance,Balance, Functional Activities, Vestibular,Visual Motor Goals Two Impairment Pt exhibits fall reaction in CTSIB positions V and Utilization Management Rn Goal (LTG) PT to display moderate sway or better during CTSIB positions V and in order to show improved compensation of vestibular dysfunction LTG Duration 01/05/24 One Impairment Pt does not have an appropriate home exercise program Short Term Goal (STG) Pt to be independent and compliant with an appropriate HEP STG Duration 12/05/23 Assessment Summary Assessment Pt noted relative ease of seated VOR, X1, X2, corrective saccades, trial of performing standing and walking, noticeable increase in difficulty. Instructed to make sure HEP is performed with enough difficulty to make symptoms slightly noticeable, but not overdo it. Physical Therapy Plan Frequency and Duration Frequency of Treatment 2x/Week Plan of Care Start Date 11/06/23 Plan of Care End Date 01/05/24 Therapeutic Interventions Therapeutic Interventions Balance Training,Canalithic Repositioning,Coordination Training,Home Exercise Program ,Manual Therapy,Neuromuscular Re-education,Patient/Caregiver Education,Self-Care/Home Management,Therapeutic Activities,Therapeutic Exercises,Vestibular Rehabilitation Next Visit Focus/Plan Next Note Type Treatment Note Next Visit Plan VOR, X1/X2, Habituation/ adaptation exercises
--- NOTE | 2023-11-15 16:58 | PT.OTN ---
Current Diagnoses Other disorders of vestibular function, right ear (11/15/23) Unspecified disorder of vestibular function, unspecified ear (11/15/23) Physical Therapy Treatment Note PT-OP-A Visit Information Start: 11/06/23 17:58 Freq: Status: Active Protocol: Document 11/15/23 16:00 DCW (Rec: 11/15/23 16:55 DCW [id number]) Out-Patient Physical Therapy Visit Information Visit Information Visit Type Treatment Note Visit Start Time 16:00 Visit Stop Time 16:45 Visit Number 3 Number of HEAD PORTER Visits 0 Evaluation Information Evaluation Date 11/06/23 PT-OP-B Current Condition Start: 11/06/23 17:58 Freq: Status: Active Protocol: Document 11/06/23 15:15 DCW (Rec: 11/06/23 18:08 DCW [id number]) Current Condition History of Current Condition Onset Date April, Current Complaints Lightheadedness, Motion sensitivity History of Current Condition Pt is an 78 year old male with a six month history of spontaneous onset of constant dizziness, reported as sensitivity to motion and lightheadedness, worsened with quick motions, or when up walking around. Pt was seen in May of last year with vague complaints which sounded much more like BPPV, and was treated at that time with repeated Melody maneuvers, with mild success. After discharge , symptoms were still bothering him enough that he was seen by an ENT. 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 Pt returns to vestibular therapy with hopes that dedicated vestibular rehabilitation will help to decrease severity of symptoms and help adjust to return to normal activity. Additionally, pt recently underwent cataract surgery, now has 20/ 20 vision, uses readers for close up. Prior Treatments and Tests VNG: Cervical VEMP abnormal - 40% right asymmetry. Criteria for asymmetry is greater than 36%. PT-OP-C Subjective Start: 11/06/23 17:58 Freq: Status: Active Protocol: Document 11/15/23 16:00 DCW (Rec: 11/15/23 16:55 DCW [id number]) OP-PT Subjective Patient Comments Patient Comments Pt faithfully performing the HEP, not making him symptomatic. PT-OP-O Vestibular Start: 11/06/23 17:58 Freq: Status: Active Protocol: Document 11/06/23 15:15 DCW (Rec: 11/06/23 18:01 DCW [id number]) Vestibular Assessment Visual Testing Convergence Test Impaired DVA (Line Degradation) 6 Vestibular Function Tests CTSIB Position 1 Slight Sway CTSIB Position 2 Mild Sway CTSIB Position 3 Slight Sway CTSIB Position 4 Moderate Sway CTSIB Position 5 Falls Risk CTSIB Position 6 Falls Risk PT-OP-Q Treatments Start: 11/06/23 17:58 Freq: Status: Active Protocol: Document 11/15/23 16:00 DCW (Rec: 11/15/23 16:55 DCW [id number]) Gym Equipment Shuttle Balance Red Details WBOS, Staggered, Lateral Neuro Re-Education Treatment Balance Activities Uneven surfaces Details Hurdles on uneven blue pad Dynamic Gait Details Hallway ambulation Comments Horizontal HTs (120 bpm) Vertical HTs (120 bpm) Diagonal HTs Tandem Ambulation Backward PT-OP-T Assessment and Plan Start: 11/06/23 17:58 Freq: Status: Active Protocol: Document 11/15/23 16:00 DCW (Rec: 11/15/23 16:55 DCW [id number]) Physical Therapy Assessment Impairments Impairments Activity Tolerance,Balance, Functional Activities, Vestibular,Visual Motor Goals Two Impairment Pt exhibits fall reaction in CTSIB positions V and Transaction Coordinator Goal (LTG) PT to display moderate sway or better during CTSIB positions V and in order to show improved compensation of vestibular dysfunction LTG Duration 01/05/24 One Impairment Pt does not have an appropriate home exercise program Short Term Goal (STG) Pt to be independent and compliant with an appropriate HEP STG Duration 12/05/23 Assessment Summary Assessment Very good response to balance challenges today. Appropriate struggle with shuttle balance and uneven surface ambulation. Doing well with HEP. Physical Therapy Plan Frequency and Duration Frequency of Treatment 2x/Week Plan of Care Start Date 11/06/23 Plan of Care End Date 01/05/24 Therapeutic Interventions Therapeutic Interventions Balance Training,Canalithic Repositioning,Coordination Training,Home Exercise Program ,Manual Therapy,Neuromuscular Re-education,Patient/Caregiver Education,Self-Care/Home Management,Therapeutic Activities,Therapeutic Exercises,Vestibular Rehabilitation Next Visit Focus/Plan Next Note Type Treatment Note Next Visit Plan VOR, X1/X2, Habituation/ adaptation exercises
--- NOTE | 2023-11-30 11:18 | PT.OTN ---
Current Diagnoses Other disorders of vestibular function, right ear (11/30/23) Unspecified disorder of vestibular function, unspecified ear (11/30/23) Physical Therapy Treatment Note PT-OP-A Visit Information Start: 11/06/23 17:58 Freq: Status: Active Protocol: Document 11/30/23 10:35 DCW (Rec: 11/30/23 11:18 DCW [id number]) Out-Patient Physical Therapy Visit Information Visit Information Visit Type Treatment Note Visit Start Time 10:35 Visit Stop Time 11:15 Visit Number 3 Number of RESTORATION TECHNICIAN Visits 0 Evaluation Information Evaluation Date 11/06/23 PT-OP-B Current Condition Start: 11/06/23 17:58 Freq: Status: Active Protocol: Document 11/06/23 15:15 DCW (Rec: 11/06/23 18:08 DCW [id number]) Current Condition History of Current Condition Onset Date April, Current Complaints Lightheadedness, Motion sensitivity History of Current Condition Pt is an 78 year old male with a six month history of spontaneous onset of constant dizziness, reported as sensitivity to motion and lightheadedness, worsened with quick motions, or when up walking around. Pt was seen in May of last year with vague complaints which sounded much more like BPPV, and was treated at that time with repeated Melody maneuvers, with mild success. After discharge , symptoms were still bothering him enough that he was seen by an ENT. 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 Pt returns to vestibular therapy with hopes that dedicated vestibular rehabilitation will help to decrease severity of symptoms and help adjust to return to normal activity. Additionally, pt recently underwent cataract surgery, now has 20/ 20 vision, uses readers for close up. Prior Treatments and Tests VNG: Cervical VEMP abnormal - 40% right asymmetry. Criteria for asymmetry is greater than 36%. PT-OP-C Subjective Start: 11/06/23 17:58 Freq: Status: Active Protocol: Document 11/30/23 10:35 DCW (Rec: 11/30/23 11:18 DCW [id number]) OP-PT Subjective Patient Comments Patient Comments Pt reports feeling vertigo about 2 am following his last visit, no symptoms since then. PT-OP-O Vestibular Start: 11/06/23 17:58 Freq: Status: Active Protocol: Document 11/06/23 15:15 DCW (Rec: 11/06/23 18:01 DCW [id number]) Vestibular Assessment Visual Testing Convergence Test Impaired DVA (Line Degradation) 6 Vestibular Function Tests CTSIB Position 1 Slight Sway CTSIB Position 2 Mild Sway CTSIB Position 3 Slight Sway CTSIB Position 4 Moderate Sway CTSIB Position 5 Falls Risk CTSIB Position 6 Falls Risk PT-OP-Q Treatments Start: 11/06/23 17:58 Freq: Status: Active Protocol: Document 11/30/23 10:35 DCW (Rec: 11/30/23 11:18 DCW [id number]) Neuro Re-Education Treatment Balance Activities Hurdles Details Hurdles Comments Fwd, Side-stepping Foam Details NBOS foam stance Surface Large blue Comments Marching, Head turns, eyes closed Dynamic Gait Details Hallway ambulation Comments Horizontal HTs (120 bpm) Vertical HTs (120 bpm) Diagonal HTs Tandem Ambulation Backward Eyes CLosed Ambulation PT-OP-T Assessment and Plan Start: 11/06/23 17:58 Freq: Status: Active Protocol: Document 11/30/23 10:35 DCW (Rec: 11/30/23 11:18 DCW [id number]) Physical Therapy Assessment Impairments Impairments Activity Tolerance,Balance, Functional Activities, Vestibular,Visual Motor Goals Two Impairment Pt exhibits fall reaction in CTSIB positions V and Longterm Goal (LTG) PT to display moderate sway or better during CTSIB positions V and in order to show improved compensation of vestibular dysfunction LTG Duration 01/05/24 One Impairment Pt does not have an appropriate home exercise program Short Term Goal (STG) Pt to be independent and compliant with an appropriate HEP STG Duration 12/05/23 Assessment Summary Assessment Took it easier today after pt' s complaints of vertigo the night after his last appointment. Subjective reports sound suggestive of BPPV, however only occurred once, and positional testing was negative today. Keep eye on reports of continuing symptoms. Physical Therapy Plan Frequency and Duration Frequency of Treatment 2x/Week Plan of Care Start Date 11/06/23 Plan of Care End Date 01/05/24 Therapeutic Interventions Therapeutic Interventions Balance Training,Canalithic Repositioning,Coordination Training,Home Exercise Program ,Manual Therapy,Neuromuscular Re-education,Patient/Caregiver Education,Self-Care/Home Management,Therapeutic Activities,Therapeutic Exercises,Vestibular Rehabilitation Next Visit Focus/Plan Next Note Type Treatment Note Next Visit Plan VOR, X1/X2, Habituation/ adaptation exercises
--- NOTE | 2023-12-05 16:44 | PT.OTN ---
Current Diagnoses Other disorders of vestibular function, right ear (12/05/23) Unspecified disorder of vestibular function, unspecified ear (12/05/23) Physical Therapy Treatment Note PT-OP-A Visit Information Start: 11/06/23 17:58 Freq: Status: Active Protocol: Document 12/05/23 16:00 DCW (Rec: 12/05/23 16:43 DCW [id number]) Out-Patient Physical Therapy Visit Information Visit Information Visit Type Treatment Note Visit Start Time 16:00 Visit Stop Time 16:45 Visit Number 5 Number of PROJECT COACH Visits 0 Evaluation Information Evaluation Date 11/06/23 PT-OP-B Current Condition Start: 11/06/23 17:58 Freq: Status: Active Protocol: Document 11/06/23 15:15 DCW (Rec: 11/06/23 18:08 DCW [id number]) Current Condition History of Current Condition Onset Date April, Current Complaints Lightheadedness, Motion sensitivity History of Current Condition Pt is an 78 year old male with a six month history of spontaneous onset of constant dizziness, reported as sensitivity to motion and lightheadedness, worsened with quick motions, or when up walking around. Pt was seen in May of last year with vague complaints which sounded much more like BPPV, and was treated at that time with repeated Melody maneuvers, with mild success. After discharge , symptoms were still bothering him enough that he was seen by an ENT. 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 Pt returns to vestibular therapy with hopes that dedicated vestibular rehabilitation will help to decrease severity of symptoms and help adjust to return to normal activity. Additionally, pt recently underwent cataract surgery, now has 20/ 20 vision, uses readers for close up. Prior Treatments and Tests VNG: Cervical VEMP abnormal - 40% right asymmetry. Criteria for asymmetry is greater than 36%. PT-OP-C Subjective Start: 11/06/23 17:58 Freq: Status: Active Protocol: Document 12/05/23 16:00 DCW (Rec: 12/05/23 16:43 DCW [id number]) OP-PT Subjective Patient Comments Patient Comments Pt reports he has not had a recurrence of positional vertigo since that one episode PT-OP-O Vestibular Start: 11/06/23 17:58 Freq: Status: Active Protocol: Document 11/06/23 15:15 DCW (Rec: 11/06/23 18:01 DCW [id number]) Vestibular Assessment Visual Testing Convergence Test Impaired DVA (Line Degradation) 6 Vestibular Function Tests CTSIB Position 1 Slight Sway CTSIB Position 2 Mild Sway CTSIB Position 3 Slight Sway CTSIB Position 4 Moderate Sway CTSIB Position 5 Falls Risk CTSIB Position 6 Falls Risk PT-OP-Q Treatments Start: 11/06/23 17:58 Freq: Status: Active Protocol: Document 12/05/23 16:00 DCW (Rec: 12/05/23 16:43 DCW [id number]) Neuro Re-Education Treatment Balance Activities SLS Details SLS Tandem Details Tandem Stance Surface AirEx Tilt board Details Tilt board Equipment DF/PF, Lateral Hurdles Details Hurdles/Foam Comments Fwd, Tandem, Side-stepping Dynamic Gait Details Hallway ambulation Comments Horizontal HTs (120 bpm) Vertical HTs (120 bpm) Diagonal HTs Tandem Ambulation Backward Eyes Closed Ambulation Vestibular Rehabilitation Pencil Push-ups Details Pencil Push-ups Speed as tolerated Position Seated PT-OP-T Assessment and Plan Start: 11/06/23 17:58 Freq: Status: Active Protocol: Document 12/05/23 16:00 DCW (Rec: 12/05/23 16:43 DCW [id number]) Physical Therapy Assessment Impairments Impairments Activity Tolerance,Balance, Functional Activities, Vestibular,Visual Motor Goals Two Impairment Pt exhibits fall reaction in CTSIB positions V and [facility] Goal (LTG) PT to display moderate sway or better during CTSIB positions V and in order to show improved compensation of vestibular dysfunction LTG Duration 01/05/24 One Impairment Pt does not have an appropriate home exercise program Short Term Goal (STG) Pt to be independent and compliant with an appropriate HEP STG Duration 12/05/23 Assessment Summary Assessment Showing good progress with increasing balance challenges, did well with SLS and tandem on AirEx. Continue to have pt challenge self with oculomotor /VOR activities at home, increasing difficulty as tolerated. Physical Therapy Plan Frequency and Duration Frequency of Treatment 2x/Week Plan of Care Start Date 11/06/23 Plan of Care End Date 01/05/24 Therapeutic Interventions Therapeutic Interventions Balance Training,Canalithic Repositioning,Coordination Training,Home Exercise Program ,Manual Therapy,Neuromuscular Re-education,Patient/Caregiver Education,Self-Care/Home Management,Therapeutic Activities,Therapeutic Exercises,Vestibular Rehabilitation Next Visit Focus/Plan Next Note Type Treatment Note Next Visit Plan VOR, X1/X2, Habituation/ adaptation exercises
--- NOTE | 2023-12-07 16:47 | PT.OTN ---
Current Diagnoses Other disorders of vestibular function, right ear (12/07/23) Unspecified disorder of vestibular function, unspecified ear (12/07/23) Physical Therapy Treatment Note PT-OP-A Visit Information Start: 11/06/23 17:58 Freq: Status: Active Protocol: Document 12/07/23 16:05 DCW (Rec: 12/07/23 16:46 DCW [id number]) Out-Patient Physical Therapy Visit Information Visit Information Visit Type Treatment Note Visit Start Time 16:05 Visit Stop Time 16:45 Visit Number 6 Number of HEALTHCARE FINANCIAL ANALYST Visits 0 Evaluation Information Evaluation Date 11/06/23 PT-OP-B Current Condition Start: 11/06/23 17:58 Freq: Status: Active Protocol: Document 11/06/23 15:15 DCW (Rec: 11/06/23 18:08 DCW [id number]) Current Condition History of Current Condition Onset Date April, Current Complaints Lightheadedness, Motion sensitivity History of Current Condition Pt is an 78 year old male with a six month history of spontaneous onset of constant dizziness, reported as sensitivity to motion and lightheadedness, worsened with quick motions, or when up walking around. Pt was seen in May of last year with vague complaints which sounded much more like BPPV, and was treated at that time with repeated Melody maneuvers, with mild success. After discharge , symptoms were still bothering him enough that he was seen by an ENT. 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 Pt returns to vestibular therapy with hopes that dedicated vestibular rehabilitation will help to decrease severity of symptoms and help adjust to return to normal activity. Additionally, pt recently underwent cataract surgery, now has 20/ 20 vision, uses readers for close up. Prior Treatments and Tests VNG: Cervical VEMP abnormal - 40% right asymmetry. Criteria for asymmetry is greater than 36%. PT-OP-C Subjective Start: 11/06/23 17:58 Freq: Status: Active Protocol: Document 12/07/23 16:05 DCW (Rec: 12/07/23 16:46 DCW [id number]) OP-PT Subjective Patient Comments Patient Comments Pt felt fine after last visit PT-OP-O Vestibular Start: 11/06/23 17:58 Freq: Status: Active Protocol: Document 11/06/23 15:15 DCW (Rec: 11/06/23 18:01 DCW [id number]) Vestibular Assessment Visual Testing Convergence Test Impaired DVA (Line Degradation) 6 Vestibular Function Tests CTSIB Position 1 Slight Sway CTSIB Position 2 Mild Sway CTSIB Position 3 Slight Sway CTSIB Position 4 Moderate Sway CTSIB Position 5 Falls Risk CTSIB Position 6 Falls Risk PT-OP-Q Treatments Start: 11/06/23 17:58 Freq: Status: Active Protocol: Document 12/07/23 16:05 DCW (Rec: 12/07/23 16:46 DCW [id number]) Neuro Re-Education Treatment Balance Activities SLS Details SLS Tandem Details Tandem Stance Surface AirEx Tilt board Details Tilt board Equipment DF/PF, Lateral Hurdles Details Hurdles/Foam Comments Fwd, Tandem, Side-stepping Dynamic Gait Details Hallway ambulation Comments Horizontal HTs (120 bpm) Vertical HTs (120 bpm) Diagonal HTs Tandem Ambulation Backward Eyes Closed Ambulation PT-OP-T Assessment and Plan Start: 11/06/23 17:58 Freq: Status: Active Protocol: Document 12/07/23 16:05 DCW (Rec: 12/07/23 16:46 DCW [id number]) Physical Therapy Assessment Impairments Impairments Activity Tolerance,Balance, Functional Activities, Vestibular,Visual Motor Goals Two Impairment Pt exhibits fall reaction in CTSIB positions V and Assisted Goal (LTG) PT to display moderate sway or better during CTSIB positions V and in order to show improved compensation of vestibular dysfunction LTG Duration 01/05/24 One Impairment Pt does not have an appropriate home exercise program Short Term Goal (STG) Pt to be independent and compliant with an appropriate HEP STG Duration 12/05/23 Assessment Summary Assessment Responding well to treatment so far, showing improvement with subjective complaints of imbalance/instability. Continue to work on vestibular challenges and dynamic balance. Physical Therapy Plan Frequency and Duration Frequency of Treatment 2x/Week Plan of Care Start Date 11/06/23 Plan of Care End Date 01/05/24 Therapeutic Interventions Therapeutic Interventions Balance Training,Canalithic Repositioning,Coordination Training,Home Exercise Program ,Manual Therapy,Neuromuscular Re-education,Patient/Caregiver Education,Self-Care/Home Management,Therapeutic Activities,Therapeutic Exercises,Vestibular Rehabilitation Next Visit Focus/Plan Next Note Type Treatment Note Next Visit Plan VOR, X1/X2, Habituation/ adaptation exercises
--- NOTE | 2024-02-07 14:19 | PT.OPDS ---
Current Diagnoses Other disorders of vestibular function, right ear (12/07/23) Unspecified disorder of vestibular function, unspecified ear (12/07/23) Visit Care Team Role Provider Type Tavo Hayes MD Family Provider Physician Primary Care Provider Specialty: Family Practice Address: [address] [place] [address], [id number] Email: [email or web address] Jalen Lewis MD Attending Provider Physician Referring Provider Specialty: Ear, Nose, Throat Address: [address] [place] [address], [facility] Email: [email or web address] Visit Number Visit Number 6 Discharge Summary PT-OP-B Current Condition Start: 11/06/23 17:58 Freq: Status: Active Protocol: Document 11/06/23 15:15 DCW (Rec: 11/06/23 18:08 DCW [id number]) Current Condition History of Current Condition Onset Date April, Current Complaints Lightheadedness, Motion sensitivity History of Current Condition Pt is an 78 year old male with a six month history of spontaneous onset of constant dizziness, reported as sensitivity to motion and lightheadedness, worsened with quick motions, or when up walking around. Pt was seen in May of last year with vague complaints which sounded much more like BPPV, and was treated at that time with repeated Melody maneuvers, with mild success. After discharge , symptoms were still bothering him enough that he was seen by an ENT. 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 Pt returns to vestibular therapy with hopes that dedicated vestibular rehabilitation will help to decrease severity of symptoms and help adjust to return to normal activity. Additionally, pt recently underwent cataract surgery, now has 20/ 20 vision, uses readers for close up. Prior Treatments and Tests VNG: Cervical VEMP abnormal - 40% right asymmetry. Criteria for asymmetry is greater than 36%. PT-OP-C Subjective Start: 11/06/23 17:58 Freq: Status: Active Protocol: Document 12/07/23 16:05 DCW (Rec: 12/07/23 16:46 DCW [id number]) OP-PT Subjective Patient Comments Patient Comments Pt felt fine after last visit PT-OP-O Vestibular Start: 11/06/23 17:58 Freq: Status: Active Protocol: Document 11/06/23 15:15 DCW (Rec: 11/06/23 18:01 DCW [id number]) Vestibular Assessment Visual Testing Convergence Test Impaired DVA (Line Degradation) 6 Vestibular Function Tests CTSIB Position 1 Slight Sway CTSIB Position 2 Mild Sway CTSIB Position 3 Slight Sway CTSIB Position 4 Moderate Sway CTSIB Position 5 Falls Risk CTSIB Position 6 Falls Risk PT-OP-T Assessment and Plan Start: 11/06/23 17:58 Freq: Status: Active Protocol: Document 02/07/24 14:18 DCW (Rec: 02/07/24 14:19 DCW [id number]) Physical Therapy Assessment Assessment Summary Assessment Pt has not been seen in more than two months, does not have any follow-up visits scheduled. Pt will be discharged from skilled PT at this time, will require a new referral in order to return.
== END 2024-02-14 13:36 ==
LOC: PHYS 16:00
PROVIDERS: Family Provider Family Medicine; PCP Family Medicine; Referring Provider Otolaryngology; Visit Provider Otolaryngology
DX: H81.90 Unspecified disorder of vestibular function, unspecified ear (principal); H81.8X1 Other disorders of vestibular function, right ear
CPT/HCPCS: 97112; 97162